=== PATIENT | male | born 1995 | race Two or more races ===

== ENCOUNTER 2017-09-17 23:55 | Emergency (ER) | payer SELFPAY ==
[~2017-09-17] VITALS: Ht 190.5 cm; Wt 111.1 kg
[2017-09-18] MEDS ORDERED: diphenhdrAMINE HCL 12.5 MG/5 ML UD PO ONE (02:00)
[2017-09-18] MEDS ORDERED: methylPREDNISolone SOD SUCC 125 MG/2 ML VL IM ONE (02:00)
[2017-09-18] MEDS ORDERED: diphenhdrAMINE HCL 50 MG/1 ML VL ONE (02:15)
[2017-09-18] MEDS ORDERED: diphenhdrAMINE HCL 50 MG/1 ML VL IV ONE (02:30)
[2017-09-18] MEDS ORDERED: DEXAMETHASONE SOD PHOS 10MG/1ML VIAL INJ IM ONE (03:30)
[2017-09-18 03:59] VITALS: BP 128/70
== END 2017-09-18 04:31 | disposition home or self-care (01) ==
LOC: ER 23:55
DX: L20.9 Atopic dermatitis, unspecified (principal)
CPT/HCPCS: 96372; 96374; 99284; J1100; J1200; J2930